=== PATIENT | female | born 1940 | race Caucasian/White ===

== ENCOUNTER → 2017-02-10 | Outpatient (CLI) | payer MEDICARE, OTHER ==
[~2017-02-10] MED LIST: INSU100V13 SC; LINA5TAB PO; LISI5TAB7 PO; METF10002 PO; OMEP-110 PO; PRAV20TA2 PO; TAMS0.4C2 PO
[2017-02-10 12:28] LABS: HEMOGLOBIN 12.6 g/dL (11.7-16.4)
[2017-02-10 12:41] LABS: BLOOD UREA NITROGEN 11 mg/dL (7-18)
[2017-02-10 12:44] LABS: ASPARTATE AMINO TRANSFERASE 9 U/L (15-37)
[2017-02-10 12:52] LABS: PATH.CAST-FLAG NOT PRESENT; SPERM-FLAG NOT PRESENT; SRC-FLAG NOT PRESENT; XTAL-FLAG NOT PRESENT; YLC-FLAG NOT PRESENT
== END | disposition home or self-care (01) ==
LOC: STAR 10:51
PROVIDERS: ATTEND Urology
DX: Z01.818 Encounter for other preprocedural examination (principal); N20.0 Calculus of kidney; R79.1 Abnormal coagulation profile
CPT/HCPCS: 36415; 80053; 81001; 85025; 85610; 85730; 87077; 87086; 87186; 93005